=== PATIENT | female | born 1985 | race Caucasian/White ===

== ENCOUNTER 2017-06-28 14:26 | Emergency (ER) | payer OTHER ==
[~2017-06-28] VITALS: Ht 157.5 cm; Wt 107.0 kg
[2017-06-28 16:05] VITALS: BP 138/68
== END 2017-06-28 16:05 | disposition home or self-care (01) ==
LOC: ED 14:26
DX: H60.92 Unspecified otitis externa, left ear (principal); R10.9 Unspecified abdominal pain
CPT/HCPCS: J1885

== ENCOUNTER 2018-07-02 22:23 | Observation (INO) | payer OTHER ==
[~2018-07-02] VITALS: Ht 157.5 cm; Wt 107.7 kg
[2018-07-02 22:43] VITALS: Ht 157.5 cm; Wt 107.7 kg
[2018-07-03 00:38] LABS: BASOPHIL % 0.2 % (0-2); PLATELET COUNT 316 x10^3mcL (130-400)
[2018-07-03 00:47] LABS: CALCIUM 8.3 mg/dL (8.5-10.1); CARBON DIOXIDE 23.1 mmol/L (21-32); CHLORIDE SERUM 105 mmol/L (98-107); GFR1 > 60 mL/min; GLUCOSE SERUM 114 mg/dL (74-106); POTASSIUM SERUM 3.5 mmol/L (3.5-5.1); SODIUM SERUM 137 mmol/L (136-145)
[2018-07-03 00:51] LABS: UA SPECIFIC GRAVITY 1.025 (1.005-1.035); microscopic required? YES; urine erythrocyte 1+ (NEGATIVE)
[2018-07-03 00:52] LABS: ALKALINE PHOSPHATASE 72 U/L (46-116); ALT/SGPT 27 U/L (14-59); AST/SGOT 21 U/L (15-37); BILIRUBIN TOTAL 0.39 mg/dL (0.20-1.00); TOTAL PROTEIN, SERUM 7.5 g/dL (6.4-8.2)
[2018-07-03 00:56] LABS: RED CELL DISTRIBUTION WIDTH 20.9 % (11.5-14.5)
[2018-07-03 03:22] VITALS: BP 99/56
[2018-07-03 06:07] VITALS: BP 96/51
[2018-07-03 06:30] LABS: PLATELET COUNT 304 x10^3mcL (130-400)
[2018-07-03 06:44] LABS: BASOPHIL % 0 % (0-2); RED CELL DISTRIBUTION WIDTH 20.9 % (11.5-14.5)
[2018-07-03 06:59] LABS: ALKALINE PHOSPHATASE 65 U/L (46-116); ALT/SGPT 25 U/L (14-59); AST/SGOT 16 U/L (15-37); BILIRUBIN TOTAL 0.2 mg/dL (0.20-1.00); CALCIUM 8.1 mg/dL (8.5-10.1); CARBON DIOXIDE 22.1 mmol/L (21-32); CHLORIDE SERUM 106 mmol/L (98-107); CREATININE SERUM 0.8 mg/dL (0.6-1.0); GFR1 > 60 mL/min; GLUCOSE SERUM 110 mg/dL (74-106); PHOSPHOROUS 3.1 mg/dL (2.5-4.9); POTASSIUM SERUM 3.8 mmol/L (3.5-5.1); SODIUM SERUM 138 mmol/L (136-145); TOTAL PROTEIN, SERUM 6.6 g/dL (6.4-8.2)
[2018-07-03 07:02] LABS: ALBUMIN 2.5 g/dL (3.4-5.0)
[2018-07-03 09:38] VITALS: BP 111/59
[2018-07-03 17:51] VITALS: BP 103/67
[2018-07-03 21:06] VITALS: BP 116/66
[2018-07-04 05:53] VITALS: BP 100/60
[2018-07-04 05:59] LABS: BASOPHIL % 0.5 % (0-2); PLATELET COUNT 330 x10^3mcL (130-400)
[2018-07-04 06:20] LABS: CARBON DIOXIDE 21.4 mmol/L (21-32); CHLORIDE SERUM 108 mmol/L (98-107); CREATININE SERUM 0.6 mg/dL (0.6-1.0); GFR1 > 60 mL/min; GLUCOSE SERUM 91 mg/dL (74-106); POTASSIUM SERUM 4.2 mmol/L (3.5-5.1); SODIUM SERUM 139 mmol/L (136-145)
[2018-07-04 06:32] LABS: RED CELL DISTRIBUTION WIDTH 21.5 % (11.5-14.5)
[2018-07-04 09:09] VITALS: BP 95/52
[2018-07-04] MEDS ORDERED: CEPHALEXIN500 M1 PO (09:57)
[2018-07-04 09:58] VITALS: BP 95/52
[2018-07-04] MEDS ORDERED: FERROUS SULFAT325 M2 PO (09:58)
== END 2018-07-04 10:56 | disposition home or self-care (01) | DRG 463 ==
LOC: ED 22:23 → MU 07-03 01:43
PROVIDERS: Emergency Medicine; Internal Medicine Pulmonary Disease
DX: N12 Tubulo-interstitial nephritis, not specified as acute or chronic (principal); R65.10 Systemic inflammatory response syndrome (SIRS) of non-infectious origin without acute organ dysfunction; E66.01 Morbid (severe) obesity due to excess calories; E44.1 Mild protein-calorie malnutrition; Z68.42 Body mass index [BMI] 45.0-49.9, adult; D50.9 Iron deficiency anemia, unspecified
CPT/HCPCS: G0378; J0692; J1650; J1885; J2543; J7030